=== PATIENT | female | born 1995 | race Two or more races ===

== ENCOUNTER 2017-12-07 08:26 | Inpatient (IN) | payer MEDICAID ==
[2017-12-07] MEDS: LACTATED RINGER'S 1,000 ML IV ×4 (11:28→23:06)
[2017-12-07] MEDS ORDERED: LACTATED RINGER'S 1,000 ML IV ×2 (14:39)
[2017-12-07] MEDS ORDERED: DEXTROSE 5%-LR 1,000 ML IV (14:39)
[2017-12-07] MEDS ORDERED: CARBOPROST 250 MCG INJ IM (15:00)
[2017-12-07] MEDS ORDERED: OXYCODONE/ACETAMINOPHEN (5/325) TAB PO (15:00)
[2017-12-07] MEDS ORDERED: OXYTOCIN 30 UNITS/LR 500 ML IV (15:00)
[2017-12-07] MEDS ORDERED: MISOPROSTOL 200 MCG TAB PR (15:00)
[2017-12-07] MEDS ORDERED: METHYLERGONOVINE 0.2 MG INJ IM (15:00)
[2017-12-07 15:41] LABS: HEPATITIS B SURFACE ANTIGEN NEGATIVE (NEGATIVE)
[2017-12-07 16:59] LABS: ADD MAN DIFF? NO
[2017-12-07 17:01] LABS: BASOPHILS % 0.3 % (0.0-2.0); EOSINOPHILS % 0.2 % (0.0-7.0); HEMATOCRIT 37.4 % (37.0-47.0); HEMOGLOBIN 11.9 g/dl (12.0-16.0); LYMPHOCYTES # 1.3 10^3/ul (0.8-2.9); LYMPHOCYTES % 12.5 % (15.0-51.0); MEAN CORPUSCULAR HEMOGLOBIN 27.8 pg (29.0-33.0); MEAN CORPUSCULAR HGB CONC 31.8 g/dl (32.0-37.0); MEAN CORPUSCULAR VOLUME 87.4 fl (82.0-101.0); MEAN PLATELET VOLUME 11.4 fl (7.4-10.4); MONOCYTE # 0.5 10^3/ul (0.3-0.9); MONOCYTES % 5.2 % (0.0-11.0); NEUTROPHIL # 8.2 10^3/ul (1.6-7.5); NEUTROPHILS % 81.3 % (39.0-77.0); PLATELET COUNT 221 10^3/UL (140-415); RED BLOOD COUNT 4.28 10^6/ul (4.20-5.40); RED CELL DISTRIBUTION WIDTH 16.5 % (11.5-14.5)
[2017-12-07 17:01] LABS: WHITE BLOOD COUNT 10.1 10^3/ul (4.8-10.8)
[2017-12-07 17:20] LABS: INR 0.81; PROTIME 11.2 Sec (11.9-14.9); PT RATIO 0.9
[2017-12-07 17:21] LABS: PARTIAL THROMBOPLASTIN TIME 31.4 Sec (25.0-35.0)
[2017-12-07] MEDS: BUTORPHANOL 2 MG INJ IV (19:51)
[2017-12-08] MEDS ORDERED: FENTAnyl 2MCG/ML-ROPIV 0.2% 100 ML (01:34)
[2017-12-08] MEDS: LACTATED RINGER'S 1,000 ML IV ×2 (01:44→03:46)
[2017-12-08] MEDS ORDERED: DIPHENHYDRAMINE 50 MG INJ IV (02:30)
[2017-12-08] MEDS ORDERED: TRIMETHOBENZAMIDE 100 MG/ML VIAL IM (02:30)
[2017-12-08] MEDS ORDERED: FENTAnyl 2MCG/ML-ROPIV 0.2% 100 ML BAG EPI (02:30)
[2017-12-08] MEDS ORDERED: NALOXONE (0.4 MG/ML) INJ IV (02:30)
[2017-12-08] MEDS ORDERED: ONDANSETRON 4 MG INJ IV ×2 (02:30→14:00)
[2017-12-08] MEDS: OXYTOCIN 30 UNITS/LR 500 ML IV ×3 (10:50→18:33)
[2017-12-08] MEDS: IBUPROFEN 600 MG TAB PO ×2 (11:28→18:34)
[2017-12-08] MEDS: LIDOCAINE 1% (MPF) 30 ML INJ INJ (13:36)
[2017-12-08] MEDS ORDERED: METHYLERGONOVINE 0.2 MG INJ IM (14:00)
[2017-12-08] MEDS ORDERED: MISOPROSTOL 200 MCG TAB PR (14:00)
[2017-12-08] MEDS ORDERED: OXYTOCIN 30 UNITS/LR 500 ML IV (14:00)
[2017-12-08] MEDS ORDERED: CARBOPROST 250 MCG INJ IM (14:00)
[2017-12-08] MEDS ORDERED: SENNA/DOCUSATE NA (8.6MG/50MG) TAB PO (14:00)
[2017-12-08] MEDS ORDERED: ACETAMINOPHEN 325 MG TAB PO ×2 (14:00)
[2017-12-08] MEDS ORDERED: MAGNESIUM HYDROXIDE 30ML CUP PO (14:00)
[2017-12-08 14:59] LABS: RAPID PLASMA REAGIN NONREACTIVE (NR)
[2017-12-08] MEDS: WITCH HAZEL/GLYCERIN PAD PR (18:32)
[2017-12-08] MEDS: BENZOCAINE 20% 56 ML SPRAY TOP (18:34)
[2017-12-08] MEDS: LANOLIN 7 GM TUBE TOP (18:35)
[2017-12-08] MEDS: DIBUCAINE 1% 30 GM OINT TOP (18:35)
[2017-12-08] MEDS: LACTATED RINGER'S 1,000 ML IV* ×2 (18:36→21:41)
[2017-12-08] MEDS: BUTORPHANOL 2 MG INJ IV (22:36)
[2017-12-09] MEDS: LACTATED RINGER'S 1,000 ML IV* ×2 (05:41→13:41)
[2017-12-09] MEDS: IBUPROFEN 600 MG TAB PO ×3 (05:44→19:14)
[2017-12-09] MEDS: LACTATED RINGER'S 1,000 ML IV ×2 (07:00→15:00)
[2017-12-09] MEDS: INFLUENZA VIRUS VACCINE 0.5 ML SYG IM* (09:00)
[2017-12-09 09:06] LABS: ADD MAN DIFF? NO
[2017-12-09 09:08] LABS: BASOPHILS % 0.1 % (0.0-2.0); EOSINOPHILS # 0.1 10^3/ul (0.0-0.5); EOSINOPHILS % 0.4 % (0.0-7.0); HEMATOCRIT 29.5 % (37.0-47.0); HEMOGLOBIN 9.7 g/dl (12.0-16.0); LYMPHOCYTES # 1.8 10^3/ul (0.8-2.9); LYMPHOCYTES % 12.3 % (15.0-51.0); MEAN CORPUSCULAR HEMOGLOBIN 28.4 pg (29.0-33.0); MEAN CORPUSCULAR HGB CONC 32.9 g/dl (32.0-37.0); MEAN CORPUSCULAR VOLUME 86.3 fl (82.0-101.0); MEAN PLATELET VOLUME 10.4 fl (7.4-10.4); MONOCYTE # 0.7 10^3/ul (0.3-0.9); MONOCYTES % 4.6 % (0.0-11.0); NEUTROPHIL # 11.7 10^3/ul (1.6-7.5); PLATELET COUNT 171 10^3/UL (140-415); RED BLOOD COUNT 3.42 10^6/ul (4.20-5.40); RED CELL DISTRIBUTION WIDTH 16.8 % (11.5-14.5)
[2017-12-09 09:08] LABS: WHITE BLOOD COUNT 14.3 10^3/ul (4.8-10.8)
[2017-12-09] MEDS: DIBUCAINE 1% 30 GM OINT TOP (12:09)
[2017-12-09] MEDS: BENZOCAINE 20% 56 ML SPRAY TOP (12:09)
[2017-12-10] MEDS: IBUPROFEN 600 MG TAB PO (11:54)
[2017-12-10] MEDS: BENZOCAINE 20% 56 ML SPRAY TOP (11:54)
[2017-12-10] MEDS: LANOLIN 7 GM TUBE TOP (11:55)
[2017-12-10] MEDS: DIBUCAINE 1% 30 GM OINT TOP (11:55)
== END 2017-12-10 17:40 | disposition home or self-care (01) | DRG 775 ==
LOC: OBT 08:26 → PP1 12-08 17:24 → L-D 08:27 → OBT 13:15 → L-D 13:15
PROVIDERS: Specialist
PROC: 10E0XZZ Delivery of Products of Conception, External Approach (ICD-10-PCS; principal; 2017-12-08)
PROC: 0KQM0ZZ Repair Perineum Muscle, Open Approach (ICD-10-PCS; 2017-12-08)
DX: O70.9 Perineal laceration during delivery, unspecified (principal); Z37.0 Single live birth; Z3A.39 39 weeks gestation of pregnancy
CPT/HCPCS: 36415; 62319; 76818; 85025; 85610; 85730; 86592; 86900; 86901; 87340; 99464